=== PATIENT | female | born 1965 | race African-American/Black ===

== ENCOUNTER 2017-09-10 11:37 | Emergency (ER) | payer SELFPAY ==
[~2017-09-10] VITALS: Ht 172.7 cm; Wt 115.0 kg
[2017-09-10 11:41] VITALS: BP 181/112; PULSE 100; RESP 15; TEMP 98; TEMP 98.7; O2SAT 98
[2017-09-10] MEDS ORDERED: AMLO10TA2 PO (12:33)
[2017-09-10] MEDS ORDERED: DIAZ2TAB PO (12:33)
[2017-09-10] MEDS ORDERED: METO50TA PO (12:33)
[2017-09-10] MEDS ORDERED: CARD120C4 PO (12:33)
[2017-09-10] MEDS ORDERED: SERO400T PO (12:33)
[2017-09-10] MEDS ORDERED: PRED-503 PO (13:25)
[2017-09-10] MEDS ORDERED: MUPI2%T TOPICAL (13:25)
--- NOTE | 2017-09-10 13:26 | PD ---
HPI Chief Complaint: Oral / Dental Pain or Problem Time Seen by Provider: 12:56 Travel History International Travel<30 days: No Contact w/Intl Traveler<30days: No Traveled to known affect area: No History of Present Illness HPI 52-year-old female presents to the emergency department with complaint of painful, dry, cracked skin around her mouth for the past 3 days. Says she can barely open her mouth. Denies fever, vomiting. Denies oral lesions or pain. Denies new exposures to lotions, soaps, detergents, perfumes, toothpaste, environmental exposures, foods, lotions. Says she had a similar rash a few months ago but it subsided on its own. She has tried [id number] eczema cream and hydrocortisone with no relief of symptoms. Symptoms are mild to moderate in severity. No known relieving factors. Constantly aggravated and is more aggravated when she tries to open her mouth. Says it is a tight burning sensation. No one else with similar symptoms. Primary care provider is in [place]. History of hypertension and atrial fibrillation. No known allergies. Has no other medical complaints. No other modifying factors or associated signs and symptoms. PFSH Past Medical History Atrial Fibrillation: Yes Hypertension: Yes Tetanus Vaccination: Unknown Influenza Vaccination: No ?: Not Past Surgical History Cholecystectomy: Yes Social History Alcohol Use: Yes (occasional) Tobacco Use: No Substance Use: No Allergies-Medications (Allergen,Severity, Reaction): Coded Allergies: No Known Allergies (Unverified , 09/10/17) Reported Meds & Prescriptions Reported Meds & Active Scripts Active [place] (Hydrocodone-Acetaminophen) 5 Mg-325 Mg Tab 1 Tab PO Q4H PRN Deltasone (Prednisone) 20 Mg Tab 40 Mg PO DAILY 4 Days start 09/11/2017 Bactroban Topical (Mupirocin) 22 Gm Cream 1 Applic TOPICAL TID 10 Days Reported Seroquel (Quetiapine Fumarate) 400 Mg Tab 400 Mg PO HS Amlodipine (Amlodipine Besylate) 10 Mg Tab 10 Mg PO DAILY Metoprolol Tartrate 50 Mg Tab 50 Mg PO BID Cardizem CD 24 HR (Diltiazem CD 24 HR) 120 Mg Caper 120 Mg PO DAILY Diazepam 2 Mg Tab 2 Mg PO BID PRN Review of Systems Except as stated in HPI: all other systems reviewed are Neg Physical Exam Narrative GENERAL: Well-nourished, well-developed black female patient, in no acute distress; afebrile, nontoxic-appearing SKIN: Warm and dry. Dried, cracked, crusted skin around the outer oral mucosa; minimal honey colored drainage noted; minimal edema; without erythema. HEAD: Atraumatic. Normocephalic. EYES: Pupils equal and round. No scleral icterus. No injection or drainage. ENT: Mucosa pink and moist. Airway patent. NECK: Trachea midline. CARDIOVASCULAR: Regular rate. RESPIRATORY: No accessory muscle use. GASTROINTESTINAL: Rounded. MUSCULOSKELETAL: No obvious deformities. No clubbing. No cyanosis. No edema. NEUROLOGICAL: Awake and alert. Oriented 3. No obvious cranial nerve deficits. Motor grossly within normal limits. Normal speech. PSYCHIATRIC: Appropriate mood and affect; insight and judgment normal. Data Data Last Documented VS Vital Signs Date Time Temp Pulse Resp B/P (MAP) Pulse Ox O2 Delivery O2 Flow Rate FiO2 09/10/17 13:43 09/10/17 13:39 81 16 100 Room Air 09/10/17 11:41 98.0 Orders Orders Prednisone (Deltasone) (09/10/17 13:30) Ed Discharge Order (09/10/17 13:27) Acetamin-Hydrocod 325-5 Mg ([place] 5-325 (09/10/17 13:45) MDM Medical Decision Making Medical Screen Exam Complete: Yes Emergency Medical Condition: Yes Medical Record Reviewed: Yes Differential Diagnosis Impetigo, contact dermatitis, cold sores, nonspecific rash or skin eruption Narrative Course 52-year-old female with rash around her outer oral mucosa which appears to be consistent with impetigo. Dr. Oviedo evaluated the patient and we discussed a plan of care. Deltasone and [place] administered in the ER. Bactroban, Deltasone , [place] prescribed for home. Instructed patient to follow up with primary care provider. Patient verbalizes understanding and agreement with treatment plan. Patient is medically cleared and stable for discharge. Discussed reasons to return to the emergency department. Patient agrees with treatment plan. The patients vital signs are stable and the patient is stable for outpatient follow- up and treatment. Patient discharged home, stable and in no acute distress. Diagnosis Primary Impression: Impetigo Referrals: Customer Service Advocate Primary Care Physician Patient Instructions: General Instructions, Impetigo (ED) Additional Instructions: Soak affected area in warm water or apply wet compresses Apply antibiotic ointment as prescribed Wash clothes, linens, and pulse every day and don't share them with anyone else to decrease risk of spreading Wear gloves when applying antibiotic ointment and wash your hands thoroughly afterward Cut fingernails to prevent damage from scratching Wash hands frequently Follow-up with primary care provider Return to the emergency department immediately with worsening of symptoms Med/Other Pt SpecificInfo: Prescription(s) given Scripts Hydrocodone-Acetaminophen ([place]) 5 Mg-325 Mg Tab 1 TAB PO Q4H Y for PAIN, #8 TAB 0 Refills Prov: Treasure Blum 09/10/17 Prednisone (Deltasone) 20 Mg Tab 40 MG PO DAILY for 4 Days, #8 TAB 0 Refills start 09/11/2017 Prov: Treasure Blum 09/10/17 Mupirocin Topical (Bactroban Topical) 22 Gm Cream 1 APPLIC TOPICAL TID for Mgmt Bacterial Infection for 10 Days, #1 TUBE 0 Refills Prov: Treasure Blum 09/10/17 Disposition: 01 DISCHARGE HOME Condition: Stable Treasure Blum Sep 10, 2017 13:26
[2017-09-10] MEDS ORDERED: predniSONE 20 MG TAB PO ONE (13:30)
[2017-09-10] MEDS ORDERED: NORC5TAB PO (13:33)
[2017-09-10 13:39] VITALS: BP 154/96; PULSE 81; RESP 16; O2SAT 100
--- NOTE | 2017-09-10 13:43 | PD ---
Physical Exam Date Seen by Provider: Sep 10, 2017 Narrative I was asked to see this patient by Treasure Blum NP. The patient presented with a rash around her mouth. The patient has used Vaseline on the rash but it is getting worse rather than better. The patient reports that it is draining some clear, yellowish fluid. She reports that it is very painful to open her mouth. Data Data Last Documented VS Vital Signs Date Time Temp Pulse Resp B/P (MAP) Pulse Ox O2 Delivery O2 Flow Rate FiO2 09/10/17 13:39 81 16 154/96 (115) 100 Room Air 09/10/17 11:41 98.0 Orders Orders Prednisone (Deltasone) (09/10/17 13:30) Ed Discharge Order (09/10/17 13:27) Acetamin-Hydrocod 325-5 Mg ([place] 5-325 (09/10/17 13:45) MDM Supervised Visit with RODNEY: Yes Narrative Course I, Dr. Oviedo, have reviewed the advance practice practitioner's documentation and am in agreement, met with the patient face to face, made the diagnosis, and the medical decision making was done by me. *My assessment and Findings: She has cracking of her skin. There is some crusting. This looks most like impetigo but also resembles a contact dermatitis. I have advised Treasure to treat her with both Bactroban and prednisone. Diagnosis Primary Impression: Impetigo Referrals: Hydrographic Engineer Primary Care Physician Patient Instructions: General Instructions, Impetigo (ED) Departure Forms: Tests/Procedures Additional Instruction: Soak affected area in warm water or apply wet compresses Apply antibiotic ointment as prescribed Wash clothes, linens, and pulse every day and don't share them with anyone else to decrease risk of spreading Wear gloves when applying antibiotic ointment and wash your hands thoroughly afterward Cut fingernails to prevent damage from scratching Wash hands frequently Follow-up with primary care provider Return to the emergency department immediately with worsening of symptoms Scripts Hydrocodone-Acetaminophen ([place]) 5 Mg-325 Mg Tab 1 TAB PO Q4H Y for PAIN, #8 TAB 0 Refills Prov: Treasure Blum FLORIST 09/10/17 Prednisone (Deltasone) 20 Mg Tab 40 MG PO DAILY for 4 Days, #8 TAB 0 Refills start 09/11/2017 Prov: Treasure Blum 09/10/17 Mupirocin Topical (Bactroban Topical) 22 Gm Cream 1 APPLIC TOPICAL TID for Mgmt Bacterial Infection for 10 Days, #1 TUBE 0 Refills Prov: Treasure Blum 09/10/17 Disposition: 01 DISCHARGE HOME Condition: Stable Elo Oviedo MD Sep 10, 2017 13:43
[2017-09-10] MEDS ORDERED: ACETAMINOPHEN/HYDROcodone 325 MG/5 MG TAB PO ONE (13:45)
== END 2017-09-10 13:44 | disposition home or self-care (01) ==
LOC: NEPD 11:37
DX: L01.00 Impetigo, unspecified (principal); I10 Essential (primary) hypertension; I48.91 Unspecified atrial fibrillation
CPT/HCPCS: 99283; J7512